=== PATIENT | male | born 1970 | race Two or more races ===

== ENCOUNTER 2017-10-21 05:53 | Day surgery (SDC) | payer OTHER ==
[2017-10-21] MEDS: IV RINGERS,LACTATED 1000ML 1,000 ML IV (06:42)
[2017-10-21] MEDS ORDERED: ONDANSETRON PF 4 MG/2 ML VIAL. IV (07:00)
[2017-10-21] MEDS ORDERED: MORPHINE SULFATE 4 MG/ML DISP.SYRIN. IV (07:00)
[2017-10-21] MEDS ORDERED: fentaNYL PF VIAL 100 MCG/2 ML VIAL IV ×2 (07:00)
[2017-10-21] MEDS ORDERED: PROCHLORPERAZINE 10 MG/2 ML VIAL. IV (07:00)
[2017-10-21] MEDS ORDERED: LIDOCAINE 1% PF 2 ML VIAL. ID (07:00)
[2017-10-21] MEDS ORDERED: ONDANSETRON PF 4 MG/2 ML VIAL. (07:20)
[2017-10-21] MEDS ORDERED: ROCURONIUM 50 MG/5 ML VIAL. (07:20)
[2017-10-21] MEDS ORDERED: PROPOFOL 20 ML IV (07:20)
[2017-10-21] MEDS ORDERED: DEXAMETHASONE SOD PHOS 20 MG/5 ML VIAL. (07:20)
[2017-10-21] MEDS ORDERED: ROPIVacaine 0.5% PF 20 ML VIAL. (07:20)
[2017-10-21] MEDS ORDERED: fentaNYL PF VIAL 100 MCG/2 ML VIAL (07:20)
[2017-10-21] MEDS ORDERED: MIDAZOLAM HCL/PF 2 MG/2 ML VIAL. (07:20)
[2017-10-21] MEDS ORDERED: SUCCINYLCHOLINE 200 MG/10 ML VIAL. (07:45)
[2017-10-21] MEDS: CLINDAMYCIN 900MG PREMIX 50 ML IV (07:57)
[2017-10-21] MEDS: EPINEPHrine VIAL 30 MG/30 ML VIAL (08:24)
[2017-10-21] MEDS ORDERED: GLYCOPYRROLATE 1 MG/5 ML VIAL. (09:20)
[2017-10-21] MEDS ORDERED: NEOSTIGMINE 10 MG/10 ML VIAL. (09:20)
[2017-10-21] MEDS ORDERED: DESFLURANE 61 TO 120 MINUTES IH (09:23)
[2017-10-21] MEDS: oxyCODONE/APAP 7.5/325 1 TAB TABLET PO (10:36)
== END 2017-10-21 12:06 | disposition home or self-care (01) ==
LOC: SURG 05:53
DX: S43.492A Other sprain of left shoulder joint, initial encounter (principal); M75.52 Bursitis of left shoulder
CPT/HCPCS: 29822; J0171; J0330; J1100; J2250; J2405; J2704; J2710; J2795; J3010; J3490; J7120

== ENCOUNTER 2018-09-29 08:23 | Day surgery (SDC) | payer OTHER ==
[~2018-09-29] VITALS: Ht 170.2 cm; Wt 108.0 kg
[~2018-09-29 08:23] MED LIST: CLINDAMYCIN 900MG PREMIX 50 ML IV ONE; HYDROmorphone 2 MG/ML VIAL IV PRN; IV RINGERS,LACTATED 1000ML 1,000 ML IV SCH; LEVO200T PO; LIDOCAINE 1% PF 2 ML VIAL. ID PRN; MORPHINE SULFATE 4 MG/ML VIAL. IV PRN; ONDANSETRON PF 4 MG/2 ML VIAL. IV PRN; OXYC1TAB19 PO; PROCHLORPERAZINE 10 MG/2 ML VIAL. IV PRN; fentaNYL PF VIAL 100 MCG/2 ML VIAL IV PRN
[2018-09-29] MEDS ORDERED: fentaNYL PF VIAL 100 MCG/2 ML VIAL ONE ×2 (11:49→14:07)
[2018-09-29] MEDS ORDERED: LIDOCAINE 2% PF 5 ML VIAL. ONE (11:49)
[2018-09-29] MEDS ORDERED: PROPOFOL 20 ML IV ONE ×2 (11:49→14:07)
[2018-09-29] MEDS ORDERED: DEXAMETHASONE SOD PHOS 20 MG/5 ML VIAL. ONE (11:50)
[2018-09-29] MEDS ORDERED: ONDANSETRON PF 4 MG/2 ML VIAL. ONE (11:50)
[2018-09-29] MEDS ORDERED: MIDAZOLAM HCL/PF 2 MG/2 ML VIAL. ONE (11:50)
[2018-09-29] MEDS ORDERED: ROCURONIUM 50 MG/5 ML VIAL. ONE (11:54)
[2018-09-29] MEDS ORDERED: EPINEPHrine VIAL 30 MG/30 ML VIAL ONE (12:50)
[2018-09-29] MEDS ORDERED: ROPIVacaine 0.5% PF 20 ML VIAL. ONE ×2 (12:57→13:18)
[2018-09-29] MEDS ORDERED: SEVOFLURANE 61 TO 120 MINUTES. IH ONE (14:05)
--- NOTE | 2018-09-29 14:44 | DISCH ---
DISCHARGE INSTRUCTIONS Condition on Discharge Condition on Discharge: Stable Activity After Discharge Activity Instructions for Disc: Other, see below (May remove shoulder actively and passively, limit lifting and elbow flexion forced to 5 pounds for the next 6 weeks) Diet after Discharge Diet after Discharge: Regular Wound Incision Care Wound/Incision Care: Ice to area for comfort, Change dressing (remove dressing after 2 days may then shower no soaking until sutures removed) Community/Resources/Services Services at Discharge: PT EVALUATE & TREAT (active passive range of motion and strengthening of left shoulder rotator cuff and parascapular immediately subject to 5 pound lifting limit) Contacting the [facility] after DC Call your doctor for: Concerns you may have Follow-Up Follow up with: Dr. Shields 2 weeks LYN SHIELDS MD Sep 29, 2018 14:44
[2018-09-29] MEDS ORDERED: OXYC1TAB19 PO (14:46)
--- NOTE | 2018-09-29 15:10 | PDOC4 ---
Operative Note Operative Note Date of surgery: 09/29/2018 Preoperative diagnosis: SLAP tear right shoulder Postoperative diagnosis: Same with significant compromise of superior labrum tissue and partial-thickness subscapularis tear and posterior labral fraying Operative procedure: Right shoulder arthroscopy biceps tenodesis and debridement partial thickness subscapularis tear and posterior labral fraying Surgeon: Cornelius Anesthesia: Gen. plus scalene block Estimated blood loss: 5 mL Complications: None Operative indications: Richard is a 48-year-old male who has had some long- standing right shoulder pain unresponsive to nonoperative management of strengthening and activity modification. MRI confirmed clinical suspicion of the superior labral tear. I had gone over with him the possibility of repair versus biceps tenodesis depending on the condition and the other pathology observed. He verbalized understanding the possibility of nonhealing continued pain nerve or blood vessel damage infection medical or other anesthetic competitions among others he wishes to proceed with surgical evaluation and treatment. Operative text: Patient was identified procedure verified patient placed in the supine position on the operating table. After adequate amounts of general anesthesia plus a pre-existing scalene block were obtained he was placed decubitus position right side up all bony prominences were well-padded and the right shoulder was examined under anesthesia. The right shoulder was found to have full range of motion and no instability. The right shoulder was then prepped and draped in standard sterile fashion and after timeout was performed patient procedure identified and verified patient was placed in the arthroscopic arm caceres with a total of 15 pounds of traction and a standard posterior portal was established an anterior portal established using spinal needle localization and the shoulder joint was systematically examined. He was noted to have a partial-thickness tear the superior aspect of the subscapularis tendon which was trimmed back to stable tissue and did not otherwise required repair. He did have a type II SLAP tear with significant compromise of the surrounding superior labral tissue. I judged that a repair would be a poor choice given his significant labral compromise and fraying that occurred on the posterior and anterior aspect of the glenoid as well. The biceps tendon was cut and tagged and the labrum was extensively debrided back to stable tissue both superiorly to remove the unstable tissue as well as posterior and anteriorly. Scope was then placed subacromial the rotator cuff insertion and capsule ligament structures were otherwise noted to be intact the biceps tendon was retrieved from the anterior portal and a drilling under direct visualization to a size 8 based on the tendon size a size 9 Quattro bolt tenodesis screw was selected and after proper tensioning the biceps tendon was well fixated excess suture was removed portals were closed with subcutaneous buried Vicryl and nylon skin suture sterile dressings were applied he was placed in a regular sling extubated transferred to postop holding in stable condition having tolerated procedure well LYN CISSE MD Sep 29, 2018 15:10
[2018-09-29 16:10] VITALS: BP 132/74
== END 2018-09-29 16:10 | disposition home or self-care (01) ==
LOC: SURG 08:23
PROVIDERS: ATTEND Orthopaedic Surgery
DX: S43.431A Superior glenoid labrum lesion of right shoulder, initial encounter (principal); S46.011A Strain of muscle(s) and tendon(s) of the rotator cuff of right shoulder, initial encounter; S43.491A Other sprain of right shoulder joint, initial encounter; E03.9 Hypothyroidism, unspecified; Z88.0 Allergy status to penicillin; Z79.899 Other long term (current) drug therapy; Z90.49 Acquired absence of other specified parts of digestive tract; Z98.890 Other specified postprocedural states; X58.XXXA Exposure to other specified factors, initial encounter; Y93.89 Activity, other specified; Y92.89 Other specified places as the place of occurrence of the external cause; Y99.8 Other external cause status
CPT/HCPCS: 29823; 29828; A7015; C1713; J0171; J1100; J2001; J2250; J2405; J2704; J2795; J3010; J3490; J7120